=== PATIENT | female | born 1925 | race Caucasian/White ===

== ENCOUNTER 2016-07-05 19:15 | Inpatient (IN) | payer MEDICARE, BC ==
[2016-07-05] MEDS ORDERED: NS 0.9% 500 ML* 500 ML IV SCH (20:00)
--- NOTE | 2016-07-05 20:12 | RAD ---
HISTORY: Weakness COMPARISONS: May 13, 2010 VIEWS: 2: Frontal dual-energy and lateral views of the chest. FINDINGS: CARDIOMEDIASTINAL SILHOUETTE: The cardiomediastinal silhouette is normal. NICK: The nick are normal. PLEURA: The costophrenic angles are sharp. No pleural abnormalities are noted. LUNG PARENCHYMA: There is hyperinflation with flattening of the diaphragm and expansion of the AP diameter of the chest. ABDOMEN: The upper abdomen is clear. There is no subphrenic gas. BONES AND SOFT TISSUES: There is diffuse osteopenia. Degenerative changes are noted of the spine and shoulders OTHER: None. IMPRESSION: HYPERINFLATION, CONSISTENT WITH COPD. NO ACTIVE CARDIOPULMONARY DISEASE.
[2016-07-05 20:59] LABS: Hematocrit 40 % (35-47); Hemoglobin 12.9 g/dl (12.0-16.0); Mean Corpuscular HGB Conc 33 g/dl (31-36); Mean Corpuscular Hemoglobin 32 pg (27-31); Mean Corpuscular Volume 98 fL (80-97); Mean Platelet Volume 9 um3 (7.4-10.4); Red Blood Count 4.04 10^6/ul (4.0-5.4); Red Cell Distribution Width 14 % (10.5-15); White Blood Count 5.7 10^3/ul (3.5-10.8)
[2016-07-05 21:16] LABS: Albumin 3.4 g/dL (3.2-5.2); BUN/Creatinine Ratio 15.5 (8-20); EGFR African American 36.9 (>60); EGFR Non-African American 28.7 (>60); Magnesium 2.1 mg/dL (1.9-2.7); Potassium 3.5 mmol/L (3.5-5.0); Total Bilirubin 0.3 mg/dL (0.2-1.0); Total Protein 6.4 g/dL (6.4-8.9)
[2016-07-05 21:20] LABS: Troponin I 0.11 ng/mL (<0.04)
[2016-07-05] MEDS ORDERED: Metoprolol Tartrate IV* 1 MG/ML 5 ML VIAL IV ONE (21:20)
--- NOTE | 2016-07-05 21:21 | ED ---
Jd Rahman Billy, scribed for Jeremy Cook MD on 07/05/16 at 1943 . Complex/Multi-Sys Presentation - HPI Summary HPI Summary: Patient is an 89 year-old female BIBA to [facility] from [place] with general weakness tonight, when she was unable to get up from the toilet. Per EMS report , she was hypotensive and tachycardic. Patient is unable to provide a history, as she has a history of dementia, and she has poor short-term memory and is a poor historian. - History Of Current Complaint Chief Complaint: EDWeakness Time Seen by Provider: 07/05/16 19:21 Hx Obtained From: EMS Hx From Patient Unobtainable Due To: Dementia Onset/Duration: Lasting Hours, Still Present Timing: Constant Severity Currently: Moderate Severity Initially: Moderate Aggravating Factor(s): n/a Alleviating Factor(s): n/a Associated Signs And Symptoms: Positive: Weakness, Other - hypotension, tachycardia - Allergies/Home Medications Allergies/Adverse Reactions: Allergies Allergy/AdvReac Type Severity Reaction Status Date / Time Amoxicillin [From Augmentin] Allergy Unknown Verified 01/19/14 09:23 Reaction Details Clavulanic Acid Allergy Unknown Verified 01/19/14 09:23 [From Augmentin] Reaction Details Zolpidem [From Ambien] Allergy Unknown Verified 01/19/14 09:23 Reaction Details Home Medications: Home Medications Acetaminophen TAB* [Tylenol TAB*] 650 mg PO TID 07/05/16 [History Confirmed 02/11] Aspirin Low Dose CHEW TAB* [Aspirin Low Dose TAB*] 81 mg PO DAILY 07/05/16 [ History Confirmed 07/05/16] Cholecalciferol [Vitamin D3 Gummies] 1,000 unit PO DAILY 07/05/16 [History Confirmed 07/05/16] Donepezil TAB* [Aricept TAB*] 10 mg PO BEDTIME 07/05/16 [History Confirmed 07/05] Furosemide TAB* [Lasix TAB*] 20 mg PO DAILY 07/05/16 [History Confirmed 07/05/16 ] Ipratropium 0.5MG/2.5ML NEB* [Atrovent 0.5 MG NEB.MADI*] 0.5 mg INH BID 07/05/16 [History Confirmed 07/05/16] Loperamide LIQ* [Imodium LIQ*] 2 mg PO Q6HR PRN 07/05/16 [History Confirmed 02/11] Magnesium Hydroxide LIQ* [Milk of Magnesia LIQ*] 30 ml PO BID PRN 07/05/16 [ History Confirmed 07/05/16] Metoprolol Succinate XL TAB* [Toprol XL TAB*] 25 mg PO DAILY 07/05/16 [History Confirmed 07/05/16] Mometasone NASAL (NF) [Nasonex (NF)] 50 mcg NA DAILY 07/05/16 [History Confirmed 07/05/16] PARoxetine HCL TAB* [Paxil TAB*] 20 mg PO BEDTIME 07/05/16 [History Confirmed ] Throat Lozenges [Marte Cough Drops] 1 dee dee MT Q2HR PRN 07/05/16 [History Confirmed 07/05/16] Valsartan TAB* [Diovan TAB*] 80 mg PO DAILY 07/05/16 [History Confirmed 07/05/16 ] Vitamin B Complex CAP* [B Complex CAP*] 1 cap PO DAILY 07/05/16 [History Confirmed 07/05/16] guaiFENesin ER TAB [Mucinex*] 600 mg PO BID PRN 07/05/16 [History Confirmed 02/11] guaiFENesin/CODIEN 100MG-10MG* [Robitussin AC 100Mg-10Mg*] 15 ml PO Q4H PRN 02/11 [History Confirmed 07/05/16] PMH/Surg Hx/FS Hx/Imm Hx Cardiovascular History: Reports: Hx Congestive Heart Failure, Hx Hypertension Musculoskeletal History: Reports: Hx Osteoporosis Neurological History: Reports: Hx Dementia Infectious Disease History: No Infectious Disease History: Denies: Traveled Outside the [place] in Last 30 Days - Family History Known Family History: Positive: Unknown - patient is a poor historian - Social History Alcohol Use: None Substance Use Type: Reports: None Smoking Status (MU): Never Smoked Tobacco Review of Systems Negative: Fever Positive: Other - hypotension, tachycardia Positive: Weakness All Other Systems Reviewed And Are Negative: Yes Physical Exam Triage Information Reviewed: Yes Vital Signs On Initial Exam: Initial Vitals Temp Pulse Resp BP Pulse Ox 97.6 F 120 20 98/60 98 07/05/16 19:31 07/05/16 19:31 07/05/16 19:31 07/05/16 19:31 07/05/16 19:31 Vital Signs Reviewed: Yes Completion Of Physical Exam Limited Due To: Dementia Appearance: Positive: No Pain Distress, Thin Skin: Positive: Warm Head/Face: Positive: Normal Head/Face Inspection Eyes: Positive: JOL[place] ENT: Positive: Other - [place] Neck: Positive: Supple Respiratory/Lung Sounds: Positive: Breath Sounds Present Cardiovascular: Positive: IRR, Tachycardia Abdomen Description: Positive: Nontender, Soft Bowel Sounds: Positive: Present Musculoskeletal: Positive: Strength/ROM Intact Neurological: Positive: Sensory/Motor Intact Psychiatric: Positive: Anxious Diagnostics - Vital Signs Vital Signs Temp Pulse Resp BP Pulse Ox 07/05/16 19:31 97.6 F 120 20 98/60 98 - Laboratory Lab Results: Lab Results 07/05/16 07/05/16 Range/Units 20:45 20:45 WBC 5.7 (3.5-10.8) 10^3/ul RBC 4.04 (4.0-5.4) 10^6/ul Hgb 12.9 (12.0-16.0) g/dl Hct 40 (35-47) % MCV 98 H (80-97) fL MCH 32 H (27-31) pg MCHC 33 (31-36) g/dl RDW 14 (10.5-15) % Plt Count 210 (150-450) 10^3/ul MPV 9 (7.4-10.4) um3 Neut % (Auto) 67.0 (38-83) % Lymph % (Auto) 21.6 L (25-47) % [place] % (Auto) 10.9 H (1-9) % Eos % (Auto) 0.1 (0-6) % Baso % (Auto) 0.4 (0-2) % Absolute Neuts (auto) 3.8 (1.5-7.7) 10^3/ul Absolute Lymphs (auto) 1.2 (1.0-4.8) 10^3/ul Absolute Monos (auto) 0.6 (0-0.8) 10^3/ul Absolute Eos (auto) 0 (0-0.6) 10^3/ul Absolute Basos (auto) 0 (0-0.2) 10^3/ul Absolute Nucleated RBC 0 10^3/ul Nucleated RBC % 0.1 Sodium 136 (133-145) mmol/L Potassium 3.5 (3.5-5.0) mmol/L Chloride 102 (101-111) mmol/L Carbon Dioxide 25 (22-32) mmol/L Anion Gap 9 (2-11) mmol/L BUN 26 H (6-24) mg/dL Creatinine 1.68 H (0.51-0.95) mg/dL Est GFR ( Amer) 36.9 (>60) Est GFR (Non-Af Amer) 28.7 (>60) BUN/Creatinine Ratio 15.5 (8-20) Glucose 99 (70-100) mg/dL Calcium 9.0 (8.6-10.3) mg/dL Magnesium 2.1 (1.9-2.7) mg/dL Total Bilirubin 0.30 (0.2-1.0) mg/dL AST 15 (13-39) U/L ALT 7 (7-52) U/L Alkaline Phosphatase 81 (34-104) U/L Troponin I 0.11 H* (<0.04) ng/mL Total Protein 6.4 (6.4-8.9) g/dL Albumin 3.4 (3.2-5.2) g/dL Globulin 3.0 (2-4) g/dL Albumin/Globulin Ratio 1.1 (1-3) TSH Pending Result Diagrams: 07/05/16 20:45 07/05/16 20:45 Lab Statement: Any lab studies that have been ordered have been reviewed, and results considered in the medical decision making process. - Radiology CXR Radiology Interpretation Completed By: Radiologist - Hyperinflation, consistent with COPD. No acute cardiopulmonary disease. - EKG 1930 EKG Interpretation: afib 119 bpm with RVR Re-Evaluation - Re-Evaluation First Eval Change: Improved - results d/wpt, d/w hospitalost Complex Multi-Symp Course/Dx - Diagnoses Provider Diagnoses: ACS (acute coronary syndrome), Rapid atrial fibrillation - Physician Notifications Discussed Care Of Patient With: Dr. Molina (hospitalist) accepts admission. Instructed by Provider To: Admit As Inpatient Discharge - Discharge Plan Condition: Fair Disposition: ADMITTED TO [facility] Referrals: Angelica Vinson MD [Primary Care Provider] - The documentation as recorded by the Jd patel Billy accurately reflects the service I personally performed and the decisions made by me, Jeremy Cook MD.
[2016-07-05] MEDS ORDERED: Metoprolol Tartrate IV* 1 MG/ML 5 ML VIAL ONE (21:22)
[2016-07-05 21:48] LABS: TSH (Thyroid Stimulating Horm) 2.31 mcIU/mL (0.34-5.60)
[2016-07-05] MEDS ORDERED: Diltiazem IV* 5 MG/ML 5 ML VIAL (for loading dose/IV Push) (25 MG) IV SLOW PU ONE (22:01)
[2016-07-05] MEDS ORDERED: Diltiazem IV VIAL* 125 MG/25 ML VIAL ONE (22:03)
--- NOTE | 2016-07-05 23:02 | HP ---
H&P (Free Text) History and Physical: PCP: Froy Vinson MD Date/Time of Evaluation: 07/05/2015 2300 CC: generalized weakness HPI: Mrs Escamilla is an 89YO female HX dementia who was found on the toilet at [facility] living with generalized weakness unable to stand prompting her transport for evaluation. She has severe dementia and is unable to contribute meaningfully to this history. There is no report of focal W/N/T, facial asymmetry, slurred speech, or other issues. Mrs Escamilla is unaware of her current location or how she came to be here. Work up is reveals an indeterminate troponin of 0.11 in the setting of CKD stg 3 -4 without comparison & an [place]. ECG is AFIB rate 119 with non-specific diffuse ST-T abnormality. Vitals show HR varying from 120-140s with systolics in the 90s. PMedHx HTN Parkinson's dementia CHF depression osteoporosis Allergies Amoxicillin [From Augmentin] Allergy (Verified 01/19/14 09:23) Unknown Reaction Details Clavulanic Acid [From Augmentin] Allergy (Verified 01/19/14 09:23) Unknown Reaction Details Zolpidem [From Ambien] Allergy (Verified 01/19/14 09:23) Unknown Reaction Details Ambulatory Orders Acetaminophen TAB* [Tylenol TAB*] 650 mg PO TID 07/05/16 Aspirin Low Dose CHEW TAB* [Aspirin Low Dose TAB*] 81 mg PO DAILY 07/05/16 Cholecalciferol [Vitamin D3 Gummies] 1,000 unit PO DAILY 07/05/16 Donepezil TAB* [Aricept TAB*] 10 mg PO BEDTIME 07/05/16 Furosemide TAB* [Lasix TAB*] 20 mg PO DAILY 07/05/16 Ipratropium 0.5MG/2.5ML NEB* [Atrovent 0.5 MG NEB.MADI*] 0.5 mg INH BID 07/05/16 Loperamide LIQ* [Imodium LIQ*] 2 mg PO Q6HR PRN 07/05/16 Magnesium Hydroxide LIQ* [Milk of Magnesia LIQ*] 30 ml PO BID PRN 07/05/16 Metoprolol Succinate XL TAB* [Toprol XL TAB*] 25 mg PO DAILY 07/05/16 Mometasone NASAL (NF) [Nasonex (NF)] 50 mcg NA DAILY 07/05/16 PARoxetine HCL TAB* [Paxil TAB*] 20 mg PO BEDTIME 07/05/16 Throat Lozenges [Marte Cough Drops] 1 ede dee MT Q2HR PRN 07/05/16 Valsartan TAB* [Diovan TAB*] 80 mg PO DAILY 07/05/16 Vitamin B Complex CAP* [B Complex CAP*] 1 cap PO DAILY 07/05/16 guaiFENesin ER TAB [Mucinex*] 600 mg PO BID PRN 07/05/16 guaiFENesin/CODIEN 100MG-10MG* [Robitussin AC 100Mg-10Mg*] 15 ml PO Q4H PRN 02/11 PSurgHx unable to obtain SocHx: unable to obtain FamHx: unable to obtain ROS: as above, otherwise reviewed and all were negative Constitutional: NAD, normally developed, obese elderly white female vitals: Vital Signs Temp 36.4 C 07/05/16 19:31 Pulse 115 07/05/16 21:02 Resp 18 07/05/16 21:02 BP 102/70 07/05/16 21:02 Pulse Ox 97 07/05/16 21:02 Intake & Output 07/04/16 07/05/16 07/05/16 23:59 11:59 23:59 Weight 180 lb HEENM: atraumatic; sclera/conjunctiva: non-icteric/clear; hearing: markedly decreased; oropharynx: clear, mucosa moist Neck: soft tissue: non-tender; thyroid: normal Pulmonary: clear to auscultation bilaterally, good aeration, no accessory muscle use CV: RR/RR, normal S1S2, no carotid bruit, no jugular venous distention, 2+ B DP/ PT, no edema Abdominal: soft, non-distended, non-tender, no rebound/guarding/rigidity, normoactive bowel sounds, no hepatosplenomegaly or masses, no costovertebral angle tenderness Musculoskeletal: general: grossly intact; gait: unsteady Integumental: normal appearance and texture Psychiatric orientation: AA&O to person only affect: flat mood: irritable eye contact: good content: unreliable memory: poor responses: timely insight: poor Testing: Lab Results 07/05/16 07/05/16 Range/Units 20:45 20:45 WBC 5.7 (3.5-10.8) 10^3/ul RBC 4.04 (4.0-5.4) 10^6/ul Hgb 12.9 (12.0-16.0) g/dl Hct 40 (35-47) % MCV 98 H (80-97) fL MCH 32 H (27-31) pg MCHC 33 (31-36) g/dl RDW 14 (10.5-15) % Plt Count 210 (150-450) 10^3/ul MPV 9 (7.4-10.4) um3 Neut % (Auto) 67.0 (38-83) % Lymph % (Auto) 21.6 L (25-47) % [place] % (Auto) 10.9 H (1-9) % Eos % (Auto) 0.1 (0-6) % Baso % (Auto) 0.4 (0-2) % Absolute Neuts (auto) 3.8 (1.5-7.7) 10^3/ul Absolute Lymphs (auto) 1.2 (1.0-4.8) 10^3/ul Absolute Monos (auto) 0.6 (0-0.8) 10^3/ul Absolute Eos (auto) 0 (0-0.6) 10^3/ul Absolute Basos (auto) 0 (0-0.2) 10^3/ul Absolute Nucleated RBC 0 10^3/ul Nucleated RBC % 0.1 Sodium 136 (133-145) mmol/L Potassium 3.5 (3.5-5.0) mmol/L Chloride 102 (101-111) mmol/L Carbon Dioxide 25 (22-32) mmol/L Anion Gap 9 (2-11) mmol/L BUN 26 H (6-24) mg/dL Creatinine 1.68 H (0.51-0.95) mg/dL Est GFR ( Amer) 36.9 (>60) Est GFR (Non-Af Amer) 28.7 (>60) BUN/Creatinine Ratio 15.5 (8-20) Glucose 99 (70-100) mg/dL Calcium 9.0 (8.6-10.3) mg/dL Magnesium 2.1 (1.9-2.7) mg/dL Total Bilirubin 0.30 (0.2-1.0) mg/dL AST 15 (13-39) U/L ALT 7 (7-52) U/L Alkaline Phosphatase 81 (34-104) U/L Troponin I 0.11 H* (<0.04) ng/mL Total Protein 6.4 (6.4-8.9) g/dL Albumin 3.4 (3.2-5.2) g/dL Globulin 3.0 (2-4) g/dL Albumin/Globulin Ratio 1.1 (1-3) TSH 2.31 (0.34-5.60) mcIU/mL ECG, personally reviewed: AFIB rate 119, non-specific diffuse ST-T abnormality CXR, personally reviewed: IMPRESSION: HYPERINFLATION, CONSISTENT WITH COPD. NO ACTIVE CARDIOPULMONARY DISEASE. Impression: 89F presenting with generalized weakness in AFIB RVR with indeterminate troponin DIAGNOSIS & PLAN Primary AFIB w/ RVR : rate control as needed : given age, confusion, & elevated fall risk, will not anticoagulate : telemetry : supplemental oxygen : supportive care elevated troponin : suspect demand ischemia : aspirin : beta cindy : telemetry : trend BELG[place] : rate control & IVFs, monitor : hold furosemide Secondary HTN : continue valsartan & metoprolol : hold furosemide dementia : continue donepezil depression : continue paroxetine Admission Rational: inpatient for AFIB/RVR not anticipated to be adequately controlled w/i 48h to allow for discharge DVTp: SCDs & heparin SQ Code Status: DNR HCP: daughter, Tracey
[2016-07-05] MEDS ORDERED: Acetaminophen TAB* 325 MG PO PRN (23:30)
[2016-07-05] MEDS ORDERED: Metoprolol Tartrate IV* 1 MG/ML 5 ML VIAL IV PRN (23:31)
[2016-07-06] MEDS ORDERED: Haloperidol INJ IV/IM* 5 MG/ML AMP IV ONE (01:15)
[2016-07-06] MEDS ORDERED: Haloperidol LIQ* 10 MG/5 ML UDC PO PRN (01:15)
[2016-07-06] MEDS ORDERED: Haloperidol TAB* 1 MG PO PRN (01:21)
[2016-07-06] MEDS: Aspirin TAB* 325 MG PO SCH ×2 (01:29→09:49)
[2016-07-06] MEDS ORDERED: Digoxin IV* 0.5 MG/2 ML AMP (0.25 MG/ML) IV ONE (04:53)
--- NOTE | 2016-07-06 04:56 | PN ---
Progress Note - Progress Note Note: Nursing reports AFIB/RVR rate 120-140s w/ systolic in the 90s. Sleeping/no complaints. Will hold valsartan & give 0.25mg IV digoxin.
[2016-07-06 05:37] LABS: Calcium 8.4 mg/dL (8.6-10.3); EGFR Non-African American 33.5 (>60)
[2016-07-06 05:42] LABS: Troponin I 0.08 ng/mL (<0.04)
[2016-07-06 05:43] LABS: Potassium 3.4 mmol/L (3.5-5.0)
[2016-07-06] MEDS ORDERED: Valsartan TAB* 80 MG PO SCH (09:00)
--- NOTE | 2016-07-06 09:00 | PN ---
Subjective Date of Service: 07/06/16 Interval History: Pt is sleeping when I initially encounter her. She wakes to loud voice and light touch. She ultimately denies pain, including chest pain and SOB. Carrying on a conversation is difficult due to her being markedly hard of hearing. Objective Active Medications: Acetaminophen (Tylenol Tab*) 650 mg PO Q6H PRN PRN Reason: FEVER/PAIN Aspirin (Aspirin Tab*) 325 mg PO DAILY [facility] Last Admin: 07/06/16 01:29 Dose: 325 mg Digoxin (Digoxin Iv*) 0.25 mg IV SLOW PU ONCE ONE Stop: 07/06/16 11:01 Donepezil HCl (Aricept Tab*) 10 mg PO BEDTIME [facility] Haloperidol (Haldol Tab*) 1 mg PO Q6H PRN PRN Reason: AGITATION Ipratropium [place] (Atrovent 0.5 Mg Neb.Tran*) 0.5 mg INH BID [facility] Metoprolol Succinate (Toprol Xl Tab*) 25 mg PO DAILY [facility] Paroxetine HCl (Paxil Tab*) 20 mg PO BEDTIME [facility] Vital Signs 07/05/16 07/05/16 07/05/16 23:30 23:45 23:56 Temperature 97 F Pulse Rate 76 84 Respiratory 17 Rate Blood Pressure 94/41 95/53 (mmHg) O2 Sat by Pulse 97 96 Oximetry 07/06/16 07/06/16 07/06/16 00:37 00:49 01:18 Temperature 97.9 F Pulse Rate 98 98 Respiratory 16 16 18 Rate Blood Pressure 96/54 96/54 (mmHg) O2 Sat by Pulse 100 100 Oximetry 07/06/16 07/06/16 07/06/16 04:12 07:53 07:55 Temperature 97.0 F Pulse Rate 147 51 111 Respiratory 20 16 Rate Blood Pressure 92/43 103/43 (mmHg) O2 Sat by Pulse 91 96 Oximetry Oxygen Devices in Use Now: None Appearance: Elderly female sleeping in bed, awakens to loud voice and light touch, NAD Eyes: No Scleral Icterus Ears/Nose/Mouth/Throat: Mucous Membranes Moist Respiratory: Symmetrical Chest Expansion and Respiratory Effort, Clear to Auscultation Cardiovascular: NL Sounds; No Murmurs; No JVD, - - irregularly irregular, tachycardic (afib on tele with rates 100-140) Abdominal: NL Sounds; No Tenderness; No Distention Extremities: No Clubbing, Cyanosis Skin: No Rash or Ulcers, No Nodules or Sclerosis Neurological: - - confused, markedly [place] Result Diagrams: 07/05/16 20:45 07/06/16 05:05 Additional Lab and Data: Lab Results 07/05/16 07/05/16 Range/Units 20:45 20:45 WBC 5.7 (3.5-10.8) 10^3/ul RBC 4.04 (4.0-5.4) 10^6/ul Hgb 12.9 (12.0-16.0) g/dl Hct 40 (35-47) % MCV 98 H (80-97) fL MCH 32 H (27-31) pg MCHC 33 (31-36) g/dl RDW 14 (10.5-15) % Plt Count 210 (150-450) 10^3/ul MPV 9 (7.4-10.4) um3 Neut % (Auto) 67.0 (38-83) % Lymph % (Auto) 21.6 L (25-47) % [place] % (Auto) 10.9 H (1-9) % Eos % (Auto) 0.1 (0-6) % Baso % (Auto) 0.4 (0-2) % Absolute Neuts (auto) 3.8 (1.5-7.7) 10^3/ul Absolute Lymphs (auto) 1.2 (1.0-4.8) 10^3/ul Absolute Monos (auto) 0.6 (0-0.8) 10^3/ul Absolute Eos (auto) 0 (0-0.6) 10^3/ul Absolute Basos (auto) 0 (0-0.2) 10^3/ul Absolute Nucleated RBC 0 10^3/ul Nucleated RBC % 0.1 Sodium 136 (133-145) mmol/L Potassium 3.5 (3.5-5.0) mmol/L Chloride 102 (101-111) mmol/L Carbon Dioxide 25 (22-32) mmol/L Anion Gap 9 (2-11) mmol/L BUN 26 H (6-24) mg/dL Creatinine 1.68 H (0.51-0.95) mg/dL Est GFR ( Amer) 36.9 (>60) Est GFR (Non-Af Amer) 28.7 (>60) BUN/Creatinine Ratio 15.5 (8-20) Glucose 99 (70-100) mg/dL Calcium 9.0 (8.6-10.3) mg/dL Magnesium 2.1 (1.9-2.7) mg/dL Total Bilirubin 0.30 (0.2-1.0) mg/dL AST 15 (13-39) U/L ALT 7 (7-52) U/L Alkaline Phosphatase 81 (34-104) U/L Troponin I 0.11 H* (<0.04) ng/mL Total Protein 6.4 (6.4-8.9) g/dL Albumin 3.4 (3.2-5.2) g/dL Globulin 3.0 (2-4) g/dL Albumin/Globulin Ratio 1.1 (1-3) TSH Pending Microbiology and Other Data: Microbiology 07/06/16 01:30 Nasal Screen MRSA (PCR)(PAIR) - Final Nasal Mrsa Negative Assess/Plan/Problems-Billing Ms Escamilla is an 89 yo F who has a h/o HTN, dementia and ? CHF who presented to the ER with c/o weakness and was found to be in rapid afib with a mildly elevated troponin that was felt to be secondary to demand ischemia. - Patient Problems (1) Atrial fibrillation with RVR Current Visit: Yes Status: Acute Code(s): I48.91 - UNSPECIFIED ATRIAL FIBRILLATION SNOMED Code(s): 938929227937446 Comment: The patient's BP is soft making controlling her afib difficult. She remains rapid with HR ranging from 100-140's. Will give additional dose of digoxin 0.25mg IV x1 at 1100 this AM. Her home antihypertensive valsartan was held to allow for room to treat her afib though so far her BP remains low. She does not appear to be symptomatic from the afib. Will get an echo. Will also contact Dr. Vinson about the patient's past history as she has not been hospitalized here in many years. I agree with no anticoagulation at this time though I will again discuss this with Dr. Vinson. Continue ASA alone. (2) Demand ischemia Current Visit: Yes Status: Acute Code(s): I24.8 - OTHER FORMS OF ACUTE ISCHEMIC HEART DISEASE SNOMED Code(s): 500075574 Comment: I suspect the patient's elevated troponin is secondary to demand ischemia. Will plan on getting an echo today though I would not pursue any further work up as the patient is chest pain free. Continue ASA. (3) Elevated serum creatinine Current Visit: Yes Status: Acute Code(s): R79.89 - OTHER SPECIFIED ABNORMAL FINDINGS OF BLOOD CHEMISTRY SNOMED Code(s): 714868469 Comment: The patient has at baseline stage III CKD but her creatinine is now worse. Will give 1L NS gently and follow up her Creatinine tomorrow. (4) HTN (hypertension) Current Visit: Yes Status: Acute Code(s): I10 - ESSENTIAL (PRIMARY) HYPERTENSION SNOMED Code(s): 87675573 Comment: BP is soft. Continue metoprolol XL with hold parameters. Hold valsartan. (5) Dementia Current Visit: Yes Status: Acute Code(s): F03.90 - UNSPECIFIED DEMENTIA WITHOUT BEHAVIORAL DISTURBANCE SNOMED Code(s): 66272769 Comment: Continue aricept. Reorient as needed. (6) DVT prophylaxis Current Visit: Yes Status: Acute Code(s): EFI3503 - SNOMED Code(s): 362787686 Comment: SQ heparin (7) DNR (do not resuscitate) Current Visit: Yes Status: Acute
[2016-07-06] MEDS: Ipratropium 0.5MG/2.5ML NEB* 0.5 MG/2.5 ML NEB.SOLN INH SCH ×2 (09:03→20:14)
[2016-07-06] MEDS: Potassium Chloride LIQUID* 20 MEQ PACKET PO SCH ×2 (09:49→13:39)
[2016-07-06] MEDS: Metoprolol Succinate XL TAB* 25 MG PO SCH (09:49)
[2016-07-06 09:58] LABS: Urine Bacteria Absent (Absent); Urine Bilirubin Negative (Negative); Urine Glucose Negative (Negative); Urine Nitrite Negative (Negative)
[2016-07-06] MEDS ORDERED: Digoxin IV* 0.5 MG/2 ML AMP (0.25 MG/ML) IV SLOW PU ONE ×2 (11:00→16:48)
[2016-07-06] MEDS: NS 0.9% 1000 ML* 1,000 ML IV SCH (11:33)
[2016-07-06] MEDS: Heparin VIAL(*) 5000 UNITS/ML VIAL (FIVE THOUSAND) SUBCUT SCH ×2 (13:39→21:36)
--- NOTE | 2016-07-06 13:48 | ECHO ---
Amended Report Patient: LALA GASTELUM [facility] Rec#: [id number] : 1925 Date: 07/06/2016 Age: 89y Height: 162.6 cm / 64.0 in Weight: 54.9 kg / 121.0 lbs Sex: F BSA: 1.6 Room#: 439 Admit Date#: 07/05/2016 Type: Inpatient Referring: Zandra Ponce DO Reading: Cristobal Felipe MD [employer]iconductor Technician: Jennifer Veliz RN RDCS CC: Angelica Vinson MD Transthoracic Echocardiogram Indication: Atrial fibrillation BP: 103/43 HR: 134 Rhythm: A-Fib Findings History: HTN, CKD, dementia, Parkinson's disease Technical Comments: The study quality is fair. Left Ventricle: The left ventricular chamber size is normal. There is increased basal septal hypertrophy noted without evidence of an increased gradient across the left ventricular outflow tract. Global left ventricular wall motion and contractility are within normal limits. The estimated ejection fraction is 60-65%. The assessment of diastolic function is non-diagnostic. Left Atrium: The left atrium is moderately dilated. Right Ventricle: The right ventricular chamber size and systolic function are within normal limits. Right Atrium: The right atrium is mildly dilated. Aortic Valve: The aortic valve is trileaflet. The aortic valve leaflets are mildly thickened. There is aortic annular calcification. There is mild aortic regurgitation. There is no evidence of aortic stenosis. Mitral Valve: There is mitral annular calcification. The mitral valve leaflets are mildly thickened. There is moderate mitral regurgitation. There is no evidence of mitral stenosis. Tricuspid Valve: The tricuspid valve leaflets are normal. There is mild to moderate tricuspid regurgitation. There is evidence of mild to moderate pulmonary hypertension. Pulmonic Valve: The pulmonic valve structure is not well visualized. There is a trace pulmonic regurgitation. There is no pulmonic stenosis. Pericardium: There is no significant pericardial effusion. A pericardial fat pad is visualized. Aorta: There is no dilatation of the ascending aorta. There is no dilatation of the aortic arch. The aortic root is normal in size. Pulmonary Artery: The main pulmonary artery is not well visualized. Venous: The inferior vena cava is dilated. There is less than 50% respiratory change in the inferior vena cava dimension. Conclusions There is increased basal septal hypertrophy noted without evidence of an increased gradient across the left ventricular outflow tract. Global left ventricular wall motion and contractility are within normal limits. The estimated ejection fraction is 60-65%. The aortic valve leaflets are mildly thickened. There is mild aortic regurgitation. There is moderate mitral regurgitation. There is mild to moderate tricuspid regurgitation. There is evidence of mild to moderate pulmonary hypertension. There is no significant pericardial effusion. Measurements Name Value Normal Range RVDdMajor (2D) 2.8 cm (2.2 - 4.4) RAd ISD 4CH 5.2 cm (3.4 - 4.9) RA (A4C)W 3 cm (2.9 - 4.6) IVSd (2D) 0.8 cm (0.6 - 1) LVPWd (2D) 0.9 cm (0.6 - 1) LVIDd (2D) 4.2 cm (3.6 - 5.4) LVIDs (2D) 2.8 cm - LV FS (2D) 33 % (25 - 45) Aortic Annulus 1.8 cm (1.4 - 2.6) Ao root diameter (2D) 2.6 cm (2.1 - 3.5) Ascending Ao 2.7 cm (2.1 - 3.4) Aortic arch 2 cm (1.8 - 3.4) LA dimension (AP) 2D 3.6 cm (2.3 - 3.8) LAd ISD 4CH 6.5 cm (2.9 - 5.3) LA ISD 4CH W 4.7 cm (2.5 - 4.5) Name Value Normal Range LA ESV SP 4CH (A/L) 73 ml - LA ESV SP 2CH (A/L) 35 ml - LA ESV BP (A/L) 58 ml - LA ESV BP (A/L) index 37 ml/m2 - LA ESV SP 4CH (MOD) 70 ml - LA ESV SP 2CH (MOD) 35 ml - Name Value Normal Range MV E-wave Vmax 1.2 m/sec - MV deceleration time 155 msec - LV septal e' Vmax 0.05 m/sec - LV lateral e' Vmax 0.12 m/sec - LV E:e' septal ratio 24 ratio - LV E:e' lateral ratio 10 ratio - Name Value Normal Range AV Vmax 1.3 m/sec - LVOT Vmax 0.75 m/sec - RUFINA Vmax 0.43 m/sec - Name Value Normal Range MV Vmax 1.2 m/sec - MV VTI 19.8 cm - MV peak gradient 5.8 mmHg - MV mean gradient 2.1 mmHg - MV PHT 68 msec - MVA (PHT) 3.2 cm2 - Name Value Normal Range TR Vmax 2.7 m/sec - TR peak gradient 29 mmHg - RAP 15 mmHg - RVSP 44 mmHg - IVC diameter 2.4 cm - Name Value Normal Range PV Vmax 0.79 m/sec -
[2016-07-06] MEDS ORDERED: Metoprolol Succinate XL TAB* 25 MG PO ONE (16:47)
[2016-07-06] MEDS: PARoxetine HCL TAB* 20 MG PO SCH (19:50)
[2016-07-06] MEDS: Donepezil TAB* 5 MG PO SCH (19:50)
--- NOTE | 2016-07-06 22:37 | CONS ---
CARDIOLOGY CONSULTATION: DATE OF CONSULT: 07/06/16 INDICATION FOR CONSULTATION: Atrial fibrillation. HISTORY OF PRESENT ILLNESS: The patient is an 89-year-old female with a history of moderate dementia, hypertension, Parkinson's disease, who came to the emergency room because of weakness. The patient is at [facility] and the staff there noted just generalized weakness. She had no focal neurologic complaints. On her EKG, she was noted to be in atrial fibrillation with rapid ventricular response. The patient does have a history of renal insufficiency. PAST SURGICAL HISTORY: Unavailable. OUTPATIENT MEDICATIONS: 1. Ambien. 2. Aspirin 81 mg a day. 3. Benazepril 10 mg a day. 4. Lasix 20 mg a day. 5. Metoprolol succinate 25 mg a day. 6. Valsartan 80 mg a day. 7. Paxil 20 mg a day. 8. Guaifenesin 600 mg p.r.n. FAMILY HISTORY: Could not be obtained. SOCIAL HISTORY: The patient lives at [facility]. I could not get any other social history. REVIEW OF SYSTEMS: The patient is unable to participate in review of systems. PHYSICAL EXAMINATION: Height is 5 feet 4 inches, weight is 121 pounds, heart rate is 110, blood pressure 107/72, respiratory rate is 16, oxygen saturation 99 % on room air. Sclerae anicteric. Oropharynx is pink without erythema. Carotids are 2+ without bruits. JVD is normal. Thyroid is normal. Cardiac Exam: Tachycardic S1, S2 without any murmurs, rubs, or gallops. Lungs are clear to auscultation bilaterally. No dullness to percussion. Abdomen is soft , nontender, nondistended with normoactive bowel sounds. Extremities show no edema. DIAGNOSTIC STUDIES/LAB DATA: CBC within normal limits. Chemistries within normal limits. AST and ALT are within normal limits. Troponin 0.11. Second troponin 0.08. TSH 2.3. Echocardiogram demonstrates normal LV size and systolic function. Ejection fraction of 65%. Moderate mitral regurgitation. [id number] tricuspid regurgitation with [id number]-hiffrxdj pulmonary hypertension. IMPRESSION: This is an 89-year-old female who was admitted to the hospital with generalized weakness. She was found to be in atrial fibrillation with a rapid ventricular response. The patient has been started on IV digoxin and continued on her oral beta-blockers. Despite that, her heart rate remains elevated. The patient has normal LV function and mild renal insufficiency. PLAN: For now, my recommendation is to continue with maximal rate control. The patient is a not a candidate for long-term anticoagulation. This was discussed with her primary care physician, Dr. Vinson. The patient is at significant increased risk for falling and complications for anticoagulation. For now, my recommendation is to add an additional Toprol-XL 25 mg to her evening dose and to add an additional digoxin 0.25 mg IV now. I will review the patient's progress in the morning and make further recommendations at that time. This case was discussed with Dr. Zandra Ponce. CC: Angelica Vinson MD * [id number]/CPS #: [id number] MAKAYLA
[2016-07-07] MEDS: NS 0.9% 1000 ML* 1,000 ML IV SCH (03:00)
[2016-07-07] MEDS: Heparin VIAL(*) 5000 UNITS/ML VIAL (FIVE THOUSAND) SUBCUT SCH ×3 (05:28→20:33)
[2016-07-07] MEDS: Ipratropium 0.5MG/2.5ML NEB* 0.5 MG/2.5 ML NEB.SOLN INH SCH ×2 (07:57→19:57)
[2016-07-07] MEDS: Metoprolol Succinate XL TAB* 25 MG PO SCH ×2 (09:22→20:19)
[2016-07-07] MEDS: Aspirin TAB* 325 MG PO SCH (09:22)
--- NOTE | 2016-07-07 12:40 | PN ---
Subjective Date of Service: 07/07/16 Interval History: Pt is feeling well. She denies any pain. No SOB. She is agreeable to getting up to eat lunch in a chair. Objective Active Medications: Acetaminophen (Tylenol Tab*) 650 mg PO Q6H PRN PRN Reason: FEVER/PAIN Aspirin (Aspirin Tab*) 325 mg PO DAILY [facility] Last Admin: 07/07/16 09:22 Dose: 325 mg Donepezil HCl (Aricept Tab*) 10 mg PO BEDTIME [facility] Last Admin: 07/06/16 19:50 Dose: 10 mg Haloperidol (Haldol Tab*) 1 mg PO Q6H PRN PRN Reason: AGITATION Heparin Sodium (Porcine) (Heparin Vial(*)) 5,000 units SUBCUT Q8HR [facility] Last Admin: 07/07/16 05:28 Dose: 5,000 units Sodium Chloride (Ns 0.9% 1000 Ml*) 1,000 mls @ 75 mls/hr IV PER RATE [facility] Last Admin: 07/07/16 03:00 Dose: 75 mls/hr Ipratropium [place] (Atrovent 0.5 Mg Neb.Tran*) 0.5 mg INH BID [facility] Last Admin: 07/07/16 07:57 Dose: 0.5 mg Metoprolol Succinate (Toprol Xl Tab*) 25 mg PO DAILY [facility] Last Admin: 07/07/16 09:22 Dose: 25 mg Paroxetine HCl (Paxil Tab*) 20 mg PO BEDTIME [facility] Last Admin: 07/06/16 19:50 Dose: 20 mg Vital Signs 07/06/16 07/06/16 07/06/16 13:10 14:25 16:09 Temperature 97.8 F Pulse Rate 147 Respiratory 18 Rate Blood Pressure 162/95 107/72 111/71 (mmHg) O2 Sat by Pulse 100 Oximetry 07/06/16 07/06/16 07/06/16 17:11 17:12 20:14 Temperature Pulse Rate 153 88 Respiratory Rate Blood Pressure 109/61 (mmHg) O2 Sat by Pulse 95 Oximetry 07/06/16 07/06/16 07/06/16 20:41 22:49 23:13 Temperature 97.5 F 97.5 F Pulse Rate 151 80 Respiratory 18 17 14 Rate Blood Pressure 120/58 131/50 (mmHg) O2 Sat by Pulse 98 98 Oximetry 01/04/1307/07/16 07/07/16 03:26 03:34 07:37 Temperature 97.5 F 97.3 F Pulse Rate 99 148 Respiratory 20 16 Rate Blood Pressure 124/72 119/78 (mmHg) O2 Sat by Pulse 98 96 Oximetry 07/07/16 07/07/16 07/07/16 07:45 07:58 11:21 Temperature 97.2 F Pulse Rate 96 111 Respiratory 16 14 16 Rate Blood Pressure 121/65 (mmHg) O2 Sat by Pulse 99 96 Oximetry Oxygen Devices in Use Now: None Appearance: Elderly female lying in bed, moved to chair, NAD Eyes: No Scleral Icterus Ears/Nose/Mouth/Throat: Mucous Membranes Moist Respiratory: Symmetrical Chest Expansion and Respiratory Effort, Clear to Auscultation, - - moist cough but no apparent sputum produced Cardiovascular: - - irregularly irregular, tachycardic Abdominal: NL Sounds; No Tenderness; No Distention Extremities: No Clubbing, Cyanosis Skin: No Rash or Ulcers, No Nodules or Sclerosis Neurological: Alert and Oriented x 3 Result Diagrams: 07/05/16 20:45 07/07/16 12:40 Additional Lab and Data: Lab Results 07/05/16 07/05/16 Range/Units 20:45 20:45 WBC 5.7 (3.5-10.8) 10^3/ul RBC 4.04 (4.0-5.4) 10^6/ul Hgb 12.9 (12.0-16.0) g/dl Hct 40 (35-47) % MCV 98 H (80-97) fL MCH 32 H (27-31) pg MCHC 33 (31-36) g/dl RDW 14 (10.5-15) % Plt Count 210 (150-450) 10^3/ul MPV 9 (7.4-10.4) um3 Neut % (Auto) 67.0 (38-83) % Lymph % (Auto) 21.6 L (25-47) % Coffee % (Auto) 10.9 H (1-9) % Eos % (Auto) 0.1 (0-6) % Baso % (Auto) 0.4 (0-2) % Absolute Neuts (auto) 3.8 (1.5-7.7) 10^3/ul Absolute Lymphs (auto) 1.2 (1.0-4.8) 10^3/ul Absolute Monos (auto) 0.6 (0-0.8) 10^3/ul Absolute Eos (auto) 0 (0-0.6) 10^3/ul Absolute Basos (auto) 0 (0-0.2) 10^3/ul Absolute Nucleated RBC 0 10^3/ul Nucleated RBC % 0.1 Sodium 136 (133-145) mmol/L Potassium 3.5 (3.5-5.0) mmol/L Chloride 102 (101-111) mmol/L Carbon Dioxide 25 (22-32) mmol/L Anion Gap 9 (2-11) mmol/L BUN 26 H (6-24) mg/dL Creatinine 1.68 H (0.51-0.95) mg/dL Est GFR ( Amer) 36.9 (>60) Est GFR (Non-Af Amer) 28.7 (>60) BUN/Creatinine Ratio 15.5 (8-20) Glucose 99 (70-100) mg/dL Calcium 9.0 (8.6-10.3) mg/dL Magnesium 2.1 (1.9-2.7) mg/dL Total Bilirubin 0.30 (0.2-1.0) mg/dL AST 15 (13-39) U/L ALT 7 (7-52) U/L Alkaline Phosphatase 81 (34-104) U/L Troponin I 0.11 H* (<0.04) ng/mL Total Protein 6.4 (6.4-8.9) g/dL Albumin 3.4 (3.2-5.2) g/dL Globulin 3.0 (2-4) g/dL Albumin/Globulin Ratio 1.1 (1-3) TSH Pending Microbiology and Other Data: Microbiology 07/06/16 01:30 Nasal Screen MRSA (PCR)([facility]) - Final Nasal Mrsa Negative Assess/Plan/Problems-Billing Ms Escamilla is an 89 yo F who has a h/o HTN, dementia and ? CHF who presented to the ER with c/o weakness and was found to be in rapid afib with a mildly elevated troponin that was felt to be secondary to demand ischemia. - Patient Problems (1) Atrial fibrillation with RVR Current Visit: Yes Status: Acute Code(s): I48.91 - UNSPECIFIED ATRIAL FIBRILLATION SNOMED Code(s): 277208607223155 Comment: Pt remains in rapid afib. Her BP today however is improved. Will continue digoxin 0.125mg daily and metoprolol XL for now (change to BID). (2) Demand ischemia Current Visit: Yes Status: Acute Code(s): I24.8 - OTHER FORMS OF ACUTE ISCHEMIC HEART DISEASE SNOMED Code(s): 037929506 Comment: I suspect the patient's elevated troponin is secondary to demand ischemia. Echo shows a normal EF without wall motion abnormalities. No further work up. Continue ASA. (3) Elevated serum creatinine Current Visit: Yes Status: Acute Code(s): R79.89 - OTHER SPECIFIED ABNORMAL FINDINGS OF BLOOD CHEMISTRY SNOMED Code(s): 496358236 Comment: Creatinine is improved back to normal. Stop IVF. Encourage good oral nutrition. (4) HTN (hypertension) Current Visit: Yes Status: Acute Code(s): I10 - ESSENTIAL (PRIMARY) HYPERTENSION SNOMED Code(s): 50689497 Comment: BP is improved. Monitor with increasing the metoprolol XL to 25mg BID. (5) Dementia Current Visit: Yes Status: Acute Code(s): F03.90 - UNSPECIFIED DEMENTIA WITHOUT BEHAVIORAL DISTURBANCE SNOMED Code(s): 15947211 Comment: Continue aricept. Reorient as needed. (6) DVT prophylaxis Current Visit: Yes Status: Acute Code(s): DJL1108 - SNOMED Code(s): 731808839 Comment: SQ heparin (7) DNR (do not resuscitate) Current Visit: Yes Status: Acute
[2016-07-07 13:11] LABS: BUN/Creatinine Ratio 21.8 (8-20); Calcium 8.6 mg/dL (8.6-10.3); EGFR African American 78.8 (>60); EGFR Non-African American 61.3 (>60); Potassium 4.8 mmol/L (3.5-5.0)
[2016-07-07] MEDS: Digoxin TAB* 0.125 MG PO SCH (16:28)
[2016-07-07] MEDS ORDERED: Digoxin TAB* 0.125 MG PO SCH (17:00)
[2016-07-07] MEDS: Donepezil TAB* 5 MG PO SCH (20:19)
[2016-07-07] MEDS: PARoxetine HCL TAB* 20 MG PO SCH (20:19)
[2016-07-08] MEDS: Heparin VIAL(*) 5000 UNITS/ML VIAL (FIVE THOUSAND) SUBCUT SCH ×3 (06:13→20:46)
[2016-07-08] MEDS: Metoprolol Succinate XL TAB* 25 MG PO SCH ×2 (08:23→20:46)
[2016-07-08] MEDS: Aspirin TAB* 325 MG PO SCH (08:23)
[2016-07-08] MEDS: Ipratropium 0.5MG/2.5ML NEB* 0.5 MG/2.5 ML NEB.SOLN INH SCH ×2 (08:40→20:08)
--- NOTE | 2016-07-08 09:36 | PN ---
Subjective Date of Service: 07/08/16 - CC: cough Interval History: The patient was a vague historian, also hard of hearing. No awareness of heart racing. Cough bothersome. Medications Active Medications: Acetaminophen (Tylenol Tab*) 650 mg PO Q6H PRN PRN Reason: FEVER/PAIN Aspirin (Aspirin Tab*) 325 mg PO DAILY [facility] Last Admin: 07/08/16 08:23 Dose: 325 mg Digoxin (Lanoxin Tab*) 0.125 mg PO 1700 [facility] Last Admin: 07/07/16 16:28 Dose: 0.125 mg Donepezil HCl (Aricept Tab*) 10 mg PO BEDTIME [facility] Last Admin: 07/07/16 20:19 Dose: 10 mg Haloperidol (Haldol Tab*) 1 mg PO Q6H PRN PRN Reason: AGITATION Heparin Sodium (Porcine) (Heparin Vial(*)) 5,000 units SUBCUT Q8HR [facility] Last Admin: 07/08/16 06:13 Dose: 5,000 units Ipratropium [place] (Atrovent 0.5 Mg Neb.Tran*) 0.5 mg INH BID [facility] Last Admin: 07/08/16 08:40 Dose: 0.5 mg Metoprolol Succinate (Toprol Xl Tab*) 25 mg PO BID [facility] Last Admin: 07/08/16 08:23 Dose: 25 mg Paroxetine HCl (Paxil Tab*) 20 mg PO BEDTIME [facility] Last Admin: 07/07/16 20:19 Dose: 20 mg Objective Vital Signs: Temp Pulse Resp BP Pulse Ox 97.4 F 61 13 130/61 98 07/08/16 08:23 07/08/16 08:42 07/08/16 08:42 07/08/16 08:23 07/08/16 08:42 Oxygen Devices in Use Now: None Appearance: Elderly female, seated, appars comfortable. Eyes: PERRLA Ears/Nose/Mouth/Throat: Clear Oropharnyx Neck: Trachea Midline Respiratory: Symmetrical Chest Expansion and Respiratory Effort - heavy rhonchorous cough, clear lungs post coughing. Cardiovascular: - - Irregularly irregular, no murmer Abdominal: NL Sounds; No Tenderness; No Distention Extremities: No Edema - upper extremities with ecchymosis noted, thin fragile skin. Skin: - - no cyanosis Neurological: - - vague c/w dementia, quite hard of hearing which the patient denies. Lines/Tubes/Other Access: Clean, Dry and Intact Peripheral IV Laboratory Results: 07/07/16 12:40 Total Bilirubin 0.30 mg/dL (0.2-1.0) 07/05/16 20:45 AST 15 U/L (13-39) 07/05/16 20:45 ALT 7 U/L (7-52) 07/05/16 20:45 Alkaline Phosphatase 81 U/L (34-104) 07/05/16 20:45 Total Protein 6.4 g/dL (6.4-8.9) 07/05/16 20:45 Albumin 3.4 g/dL (3.2-5.2) 07/05/16 20:45 Globulin 3.0 g/dL (2-4) 07/05/16 20:45 Albumin/Globulin Ratio 1.1 (1-3) 07/05/16 20:45 TSH 2.31 mcIU/mL (0.34-5.60) 07/05/16 20:45 07/06/16 05:05 Troponin I 0.08 H* EKG Data: Monitor: rates much improved c/w admission with addition of metoprolol and digoxen. In 's now (afib). Assessment/Plan 89 yo with afib, rapid ventriuclar rates. Rates show much better control with low doses of metoprolol and digoxen. BP has increased (improved) with improved rate control. Points of Discussion: Afib: Option of leaving metoprolol at her current dose or increasing further to 75 mg/ day. I don't recommend increasing digoxen due to age and Dig level of 1.7. Per Dr Felipe and Dr Vinson the patient is a fall risk therefore not a cadidate for chronic anticoagulation. Mild troponin elevation: Differential of afib, CAD and more. As asymptomatic, no racing, no chest pain, elderly, I recommend medical management for possible CAD. Increased metoprolol dose should confer added antianginal protection. Cough: new per discussions with Dr. Ponce, defer management to hospitalists.
--- NOTE | 2016-07-08 15:13 | PN ---
Subjective Date of Service: 07/08/16 Interval History: Pt is feeling ok. She denies any pain or SOB. Objective Active Medications: Acetaminophen (Tylenol Tab*) 650 mg PO Q6H PRN PRN Reason: FEVER/PAIN Aspirin (Aspirin Tab*) 325 mg PO DAILY [facility] Last Admin: 07/08/16 08:23 Dose: 325 mg Digoxin (Lanoxin Tab*) 0.125 mg PO 1700 [facility] Last Admin: 07/07/16 16:28 Dose: 0.125 mg Donepezil HCl (Aricept Tab*) 10 mg PO BEDTIME [facility] Last Admin: 07/07/16 20:19 Dose: 10 mg Haloperidol (Haldol Tab*) 1 mg PO Q6H PRN PRN Reason: AGITATION Heparin Sodium (Porcine) (Heparin Vial(*)) 5,000 units SUBCUT Q8HR [facility] Last Admin: 07/08/16 13:38 Dose: 5,000 units Ipratropium [place] (Atrovent 0.5 Mg Neb.Tran*) 0.5 mg INH BID [facility] Last Admin: 07/08/16 08:40 Dose: 0.5 mg Metoprolol Succinate (Toprol Xl Tab*) 25 mg PO BID [facility] Last Admin: 07/08/16 08:23 Dose: 25 mg Paroxetine HCl (Paxil Tab*) 20 mg PO BEDTIME [facility] Last Admin: 07/07/16 20:19 Dose: 20 mg Vital Signs 07/07/16 07/07/16 07/07/16 15:29 16:28 19:46 Temperature 97.4 F 98.1 F Pulse Rate 58 100 82 Respiratory 18 16 Rate Blood Pressure 116/65 127/58 (mmHg) O2 Sat by Pulse 99 95 Oximetry 07/07/16 07/07/16 07/07/16 19:59 20:00 23:55 Temperature 98.1 F Pulse Rate 79 54 Respiratory 14 17 20 Rate Blood Pressure 109/63 (mmHg) O2 Sat by Pulse 99 96 Oximetry 07/08/16 07/08/16 07/08/16 03:33 08:00 08:23 Temperature 98.1 F 97.4 F Pulse Rate 85 92 Respiratory 20 16 16 Rate Blood Pressure 111/56 130/61 (mmHg) O2 Sat by Pulse 97 96 Oximetry 07/08/16 07/08/16 08:42 13:05 Temperature 97.4 F Pulse Rate 61 101 Respiratory 13 16 Rate Blood Pressure 143/72 (mmHg) O2 Sat by Pulse 98 98 Oximetry Oxygen Devices in Use Now: None Appearance: Elderly female lying in bed, NAD Eyes: No Scleral Icterus Ears/Nose/Mouth/Throat: Mucous Membranes Moist Respiratory: Symmetrical Chest Expansion and Respiratory Effort, Clear to Auscultation Cardiovascular: NL Sounds; No Murmurs; No JVD, - - irregularly irregular Abdominal: NL Sounds; No Tenderness; No Distention Extremities: No Clubbing, Cyanosis Skin: No Rash or Ulcers, No Nodules or Sclerosis Neurological: - - pleasantly confused Result Diagrams: 07/05/16 20:45 07/07/16 12:40 Additional Lab and Data: Lab Results 07/05/16 07/05/16 Range/Units 20:45 20:45 WBC 5.7 (3.5-10.8) 10^3/ul RBC 4.04 (4.0-5.4) 10^6/ul Hgb 12.9 (12.0-16.0) g/dl Hct 40 (35-47) % MCV 98 H (80-97) fL MCH 32 H (27-31) pg MCHC 33 (31-36) g/dl RDW 14 (10.5-15) % Plt Count 210 (150-450) 10^3/ul MPV 9 (7.4-10.4) um3 Neut % (Auto) 67.0 (38-83) % Lymph % (Auto) 21.6 L (25-47) % [place] % (Auto) 10.9 H (1-9) % Eos % (Auto) 0.1 (0-6) % Baso % (Auto) 0.4 (0-2) % Absolute Neuts (auto) 3.8 (1.5-7.7) 10^3/ul Absolute Lymphs (auto) 1.2 (1.0-4.8) 10^3/ul Absolute Monos (auto) 0.6 (0-0.8) 10^3/ul Absolute Eos (auto) 0 (0-0.6) 10^3/ul Absolute Basos (auto) 0 (0-0.2) 10^3/ul Absolute Nucleated RBC 0 10^3/ul Nucleated RBC % 0.1 Sodium 136 (133-145) mmol/L Potassium 3.5 (3.5-5.0) mmol/L Chloride 102 (101-111) mmol/L Carbon Dioxide 25 (22-32) mmol/L Anion Gap 9 (2-11) mmol/L BUN 26 H (6-24) mg/dL Creatinine 1.68 H (0.51-0.95) mg/dL Est GFR ( Amer) 36.9 (>60) Est GFR (Non-Af Amer) 28.7 (>60) BUN/Creatinine Ratio 15.5 (8-20) Glucose 99 (70-100) mg/dL Calcium 9.0 (8.6-10.3) mg/dL Magnesium 2.1 (1.9-2.7) mg/dL Total Bilirubin 0.30 (0.2-1.0) mg/dL AST 15 (13-39) U/L ALT 7 (7-52) U/L Alkaline Phosphatase 81 (34-104) U/L Troponin I 0.11 H* (<0.04) ng/mL Total Protein 6.4 (6.4-8.9) g/dL Albumin 3.4 (3.2-5.2) g/dL Globulin 3.0 (2-4) g/dL Albumin/Globulin Ratio 1.1 (1-3) TSH Pending Microbiology and Other Data: Microbiology 07/06/16 01:30 Nasal Screen MRSA (PCR)([facility]) - Final Nasal Mrsa Negative Assess/Plan/Problems-Billing Ms Escamilla is an 89 yo F who has a h/o HTN, dementia and ? CHF who presented to the ER with c/o weakness and was found to be in rapid afib with a mildly elevated troponin that was felt to be secondary to demand ischemia. - Patient Problems (1) Atrial fibrillation with RVR Current Visit: Yes Status: Acute Code(s): I48.91 - UNSPECIFIED ATRIAL FIBRILLATION SNOMED Code(s): 725937167241220 Comment: HR is now improved (as it trend) on metoprolol XL 25mg BID and digoxin 0.125mg daily. Will continue to monitor HR. No anticoagulation after discussion with Dr. Vinson and the patient's daughter Belen. Continue ASA 81mg daily. (2) Demand ischemia Current Visit: Yes Status: Acute Code(s): I24.8 - OTHER FORMS OF ACUTE ISCHEMIC HEART DISEASE SNOMED Code(s): 125523862 Comment: I suspect the patient's elevated troponin is secondary to demand ischemia. Echo shows a normal EF without wall motion abnormalities. No further work up. Continue ASA. (3) Elevated serum creatinine Current Visit: Yes Status: Acute Code(s): R79.89 - OTHER SPECIFIED ABNORMAL FINDINGS OF BLOOD CHEMISTRY SNOMED Code(s): 952838411 Comment: Resolved. (4) HTN (hypertension) Current Visit: Yes Status: Acute Code(s): I10 - ESSENTIAL (PRIMARY) HYPERTENSION SNOMED Code(s): 64922895 Comment: BP is under fair control. Continue current medication regimen. (5) Dementia Current Visit: Yes Status: Acute Code(s): F03.90 - UNSPECIFIED DEMENTIA WITHOUT BEHAVIORAL DISTURBANCE SNOMED Code(s): 12759206 Comment: Continue aricept. Reorient as needed. (6) DVT prophylaxis Current Visit: Yes Status: Acute Code(s): WNE5774 - SNOMED Code(s): 765625398 Comment: SQ heparin (7) DNR (do not resuscitate) Current Visit: Yes Status: Acute
[2016-07-08] MEDS: Digoxin TAB* 0.125 MG PO SCH (16:50)
[2016-07-08] MEDS: PARoxetine HCL TAB* 20 MG PO SCH (20:46)
[2016-07-08] MEDS: Donepezil TAB* 5 MG PO SCH (20:46)
[2016-07-09] MEDS: Heparin VIAL(*) 5000 UNITS/ML VIAL (FIVE THOUSAND) SUBCUT SCH (06:01)
[2016-07-09 07:47] VITALS: BP 124/76
[2016-07-09] MEDS: Ipratropium 0.5MG/2.5ML NEB* 0.5 MG/2.5 ML NEB.SOLN INH SCH (07:59)
[2016-07-09] MEDS: Metoprolol Succinate XL TAB* 25 MG PO SCH (08:00)
[2016-07-09] MEDS ORDERED: Aspirin EC Low Dose* 81 MG TAB.EC PO SCH (09:00)
--- NOTE | 2016-07-09 11:17 | DS ---
DATE OF ADMISSION: 07/05/2016. DATE OF DISCHARGE: 07/09/2016. DISCHARGE DIAGNOSES: 1. Atrial fibrillation with rapid ventricular rate. 2. Possible demand ischemia. 3. Acute on chronic renal failure. SECONDARY DIAGNOSES: 1. Hypertension. 2. Parkinson's dementia. 3. Depression. 4. Osteoporosis. 5. Diastolic congestive heart failure. 6. Chronic kidney disease stage 3. MEDICATIONS: 1. Throat lozenges one lozenge by mouth every 2 hours as needed for sore throat. 2. Robitussin AC 100/10 mg 15 ml p.o. q.4 hours prn cough. 3. Mucinex ER 600 mg p.o. b.i.d. as needed for cough. 4. Vitamin B complex one capsule p.o. daily. 5. Valsartan 80 mg p.o. daily. 6. Paroxetine 20 mg p.o. at bedtime. 7. Nasonex 50 mcg nasal daily. 8. Milk of Magnesia 30 ml p.o. b.i.d. as needed for constipation. 9. Loperamide 2 mg p.o. q.6 hours prn diarrhea. 10. Atrovent 0.5 mg inhaled b.i.d. 11. Donepezil 10 mg p.o. at bedtime. 12. Cholecalciferol 1000 units p.o. daily. 13. Aspirin 81 mg p.o. daily. 14. Acetaminophen 650 mg p.o. t.i.d. New Medication: Digoxin 0.125 mg p.o. daily. Medication change: Metoprolol succinate was increased to 25 mg p.o. b.i.d. HOSPITAL COURSE: Ms. Escamilla is an 89-year-old lady with a past medical history as stated above who presented to the emergency room with complaints of generalized weakness. She was found to be in atrial fibrillation with a rapid ventricular rate in the emergency room and was admitted for further evaluation. She was seen in consultation by Cardiology (Dr. Felipe) and his recommendation was for rate control. He discussed with her primary care provider, Dr. Vinson, and since the patient is a significant increased risk for fall and complication for anticoagulation, she was felt not to be a candidate for long term care social worker anticoagulation. Rate control was obtained with increase of her Metoprolol succinate dose to 25 twice a day, in addition of Digoxin 0.125 daily. The patient had better control of her heart rate and her symptoms have resolved. She is still having some bursts of heart rate in the 110s on Telemetry , not related to exertion. She was seen in follow-up by Cardiology (Dr. Colon ) who suggested increasing her Metoprolol dose, but at this point the patient's blood pressure is on the low normal side and since her symptoms have improved significantly, I believe we can just continue to monitor her heart rate on the current dose and she will be followed at [facility] and the decision can be made to increase her Metoprolol if episodes of tachycardia persist. The patient also had some complaints of dry cough and she had no fever, no dyspnea, or other complaints. Her lungs are clear to auscultation at this time and this appeared to be a chronic problem for her as she is on prn cough medications as an outpatient. She has no objective signs of infection at this point, but she will be monitored at [facility]. On admission, the patient was found to have a creatinine of 0.11 that trended down to 0.08. Cardiology felt the differential would include atrial fibrillation, coronary artery disease, and more, but since the patient is asymptomatic, has no more palpations, no chest pain, it is early, the recommendation was just for medical management for possible CAD. Dr. Colon felt that the increased Metoprolol dose should confer added antianginal protection. The patient's Digoxin level will need to be monitored as an outpatient, especially considering her age and renal function. Level checked on July 07 was 1.7. The patient has no signs of Digoxin toxicity at this time, but she will need monitoring as an outpatient. A transthoracic echocardiogram was performed and it showed increased basal septal hypertrophy without evidence of increased gradient across the left ventricular outflow tract, ejection fraction is 60 to 65 percent, moderate MR, mild to moderate TR, mild to moderate pulmonary hypertension and no significant pericardial effusion. The patient has offered no complaints at this time and she was found to have skilled needs, so she is being discharged to [facility] for rehab in hopes of returning to her prior living arrangements at [facility]. The patient was on Furosemide as an outpatient and this was held during her hospital stay. She does not appear to be fluid overloaded at this time, but she will need monitoring as an outpatient. Her dose of Furosemide was 20 mg p.o. a day and if she develops signs of fluid overload, I think that can be resumed, but at this point, considering her age, her low normal blood pressure, and her chronic kidney disease, I believe Furosemide should be held off. PHYSICAL EXAMINATION: General: The patient is a pleasant, elderly lady, sitting up in bed in no acute distress. Vital Signs: Temperature 98.1, heart rate 70, respiratory rate 14, oxygen saturation 100 percent on room air, blood pressure is 124/76. CVS: Normal S1, S2, irregularly irregular. Chest: Breath sounds present bilaterally with no added sounds. Abdomen: Soft, nontender, nondistended. Bowel sounds are present. Extremities: No edema. Skin: There are multiple bruises in different stages of healing. Neuro: She is alert, awake, oriented to self and place. Able to move all four extremities. DIET: Heart-healthy diet. Avoid caffeine. ACTIVITY: As tolerated. DISPOSITION: To [facility]. STATUS WHILE IN THE HOSPITAL: Inpatient. Please keep in mind that this is a summarized version of this patient's hospital stay. If you need more information, please feel free to call me at or please obtain the full medical record. Approximately 50 minutes were spent to complete this discharge. CC: Dr. Vinson; Dr. Felipe; [facility] * [id number]/[facility] #: [id number] MTDD
== END 2016-07-09 15:00 | DRG 309 ==
LOC: ED 19:15 → MEDTELE 23:29
PROVIDERS: ADMIT Hospitalist; ATTEND Internal Medicine
DX: I48.91 Unspecified atrial fibrillation (principal); I13.0 Hypertensive heart and chronic kidney disease with heart failure and stage 1 through stage 4 chronic kidney disease, or unspecified chronic kidney disease; N17.9 Acute kidney failure, unspecified; I24.8 Other forms of acute ischemic heart disease; I95.9 Hypotension, unspecified; I50.30 Unspecified diastolic (congestive) heart failure; Z88.0 Allergy status to penicillin; Z88.8 Allergy status to other drugs, medicaments and biological substances; M81.0 Age-related osteoporosis without current pathological fracture; N18.3 Chronic kidney disease, stage 3 (moderate); F32.9 Major depressive disorder, single episode, unspecified; E66.9 Obesity, unspecified; Z66 Do not resuscitate; Z79.82 Long term (current) use of aspirin; I25.10 Atherosclerotic heart disease of native coronary artery without angina pectoris; I08.1 Rheumatic disorders of both mitral and tricuspid valves; I27.2 Other secondary pulmonary hypertension; G20 Parkinson's disease; F02.80 Dementia in other diseases classified elsewhere, unspecified severity, without behavioral disturbance, psychotic disturbance, mood disturbance, and anxiety; Z68.21 Body mass index [BMI] 21.0-21.9, adult
CPT/HCPCS: 36415; 71020; 80048; 80053; 80162; 80375; 81003; 81015; 83735; 84443; 84484; 85025; 87077; 87086; 87641; 93005; 93306; 94640; 94760; A9270-GY; G0480; J1160; J1630; J1644; J3490; J7644